=== PATIENT | female | born 2000 | race Caucasian/White ===

== ENCOUNTER 2022-01-18 16:14 | Emergency (ER) | payer OTHER ==
[~2022-01-18] VITALS: Ht 165.1 cm; Wt 69.9 kg
[2022-01-18] MEDS ORDERED: RIZATRIPTAN5 MG PO (17:33)
[2022-01-18] MEDS ORDERED: PROPRANOLOL HCL20 MG PO (17:34)
== END 2022-01-18 19:05 | disposition left against medical advice (07) ==
LOC: ED 16:14
DX: Z53.21 Procedure and treatment not carried out due to patient leaving prior to being seen by health care provider (principal)
CPT/HCPCS: 36415; 80053; 81001; 83690; 85025